=== PATIENT | male | born 1965 | race American Indian/Alaskan Native ===

== ENCOUNTER 2016-10-22 15:28 | Emergency (ER) | payer OTHER ==
--- NOTE | 2016-10-22 17:12 | Ultrasound Report ---
FINAL REPORT PROCEDURE: US TESTICULAR DOPPLER COMP TECHNIQUE: Real-time romano-scale and color flow Doppler sonography in multiple planes of the scrotum, testicles, and epididymes was performed. Velocity spectral waveform analysis Doppler imaging of the arterial inflow and venous outflow of the testicles was performed with image documentation. CPT 42256 and 18497 HISTORY: concern for ingunial hernia COMPARISON: No prior studies are available for comparison. FINDINGS: Right testis measures 5.0 x 2.5 x 3.3 cm. Left testis measures 4.6 x 2.7 x 2.8 cm. No testicular mass is identified. Epididymides are normal in size. Normal Doppler flow is seen in the testicles. There is likely a small right-sided varicocele and small left-sided hydrocele. In the left groin there is suspicion for possible peristalsing bowel which raises concern for left inguinal hernia. Correlation with CT of the pelvis may be useful. IMPRESSION: No evidence of orchitis or torsion is seen. Findings are worrisome for possible left inguinal hernia containing bowel. Correlation with CT of the pelvis may be useful.
--- NOTE | 2016-10-22 17:39 | History and Physical Report ---
Medications and Allergies Allergies Allergy/AdvReac Type Severity Reaction Status Date / Time No Known Allergies Allergy Unverified 10/22/16 15:56 Exam - Constitutional Vitals: Temp Pulse Resp BP Pulse Ox 99 F 91 H 18 148/100 100 10/22/16 15:51 10/22/16 15:51 10/22/16 15:51 10/22/16 15:51 10/22/16 15:51
[2016-10-22 17:44] LABS: Basophils % (Auto) 0.8 % (0.0-1.8); Eosinophils % (Auto) 3.3 % (0.0-4.3); Hematocrit 42.3 % (35.5-45.6); Hemoglobin 13.7 gm/dl (11.8-15.2); Mean Corpuscular HGB Conc 32 % (32-34); Mean Corpuscular Hemoglobin 27 pg (28-32); Mean Corpuscular Volume 82 fl (84-94); Platelet Count 321 K/mm3 (140-440); Red Blood Count 5.13 M/mm3 (3.65-5.03); Red Cell Distribution Width 14.9 % (13.2-15.2)
[2016-10-22 18:02] LABS: Alanine Aminotransferase 16 units/L (7-56); Albumin 4.3 g/dL (3.9-5); Albumin/Globulin Ratio 1.3 %; Alkaline Phosphatase 83 units/L (35-129); Anion Gap 16 mmol/L; Blood Urea Nitrogen 11 mg/dL (9-20); Calcium 9.3 mg/dL (8.4-10.2); Carbon Dioxide 24 mmol/L (22-30); Chloride 100.7 mmol/L (98-107); Glucose 101 mg/dL (75-100); Lipase 56 units/L (13-60); Potassium 3.9 mmol/L (3.6-5.0); Sodium 137 mmol/L (137-145); Total Protein 7.6 g/dL (6.3-8.2)
[2016-10-22 18:27] LABS: Bilirubin,Urine NEG (Negative); Blood,Urine SM (Negative); Ketones,Urine NEG (Negative); Leukocyte Esterase,Urine NEG (Negative); Mucus,Urine FEW /HPF; Nitrite,Urine NEG (Negative); Protein,Urine <15 mg/dL mg/dL (Negative); Urobilinogen,Urine < 2.0 mg/dL (<2.0)
[2016-10-22] MEDS ORDERED: TYLENOL ONE (19:50)
[2016-10-22] MEDS ORDERED: TYLENOL PO ONE (19:56)
[2016-10-22] MEDS ORDERED: MORPHINE IV ONE (20:28)
[2016-10-22] MEDS ORDERED: ZOFRAN IV ONE (20:28)
[2016-10-22] MEDS ORDERED: NACL ONE (20:31)
--- NOTE | 2016-10-22 20:39 | Emergency Department Report ---
ED Male HPI - General Chief complaint: Abdominal Pain Stated complaint: ABD PAIN Time Seen by Provider: 10/22/16 20:15 Source: patient, RN notes reviewed Mode of arrival: Ambulatory Limitations: No Limitations - History of Present Illness Initial comments: 51-year-old male presents to the emergency department complaining of left inguinal hernia pain. Patient states he has had a hernia for several years but over the past 4 days has become larger and painful. Patient describes sharp pain that does not radiate. He denies difficulty urinating, constipation, or diarrhea. There are no other complaints. MD Complaint: hernia -: Gradual, days(s) (4) Location: left inguinal region Radiation: none Severity: moderate Severity scale (0 -10): 5 Quality: sharp Consistency: intermittent Improves with: none Worsens with: none denies other symptoms - Related Data Previous Rx's Medication Instructions Recorded Last Taken Type HYDROcodone/APAP 5-325 [[place] 1 each PO Q6HR PRN #30 tablet 10/22/16 Unknown Rx 5/325] Allergies Allergy/AdvReac Type Severity Reaction Status Date / Time No Known Allergies Allergy Unverified 10/22/16 15:56 ED Review of Systems ROS: Stated complaint: ABD PAIN Other details as noted in HPI Comment: All other systems reviewed and negative Genitourinary: as per HPI. denies: dysuria, discharge, testicular pain ED Past Medical Hx - Past Medical History Previous Medical History?: Yes Additional medical history: left inguinal hernia - Surgical History Past Surgical History?: Yes Additional Surgical History: right knee - Family History Family history: no significant - Social History Smoking Status: Never Smoker Substance Use Type: Alcohol - Medications Home Medications: Home Medications Medication Instructions Recorded Confirmed Last Taken Type HYDROcodone/APAP 5-325 [[place] 1 each PO Q6HR PRN #30 tablet 10/22/16 Unknown Rx 5/325] ED Physical Exam - General Limitations: No Limitations General appearance: alert, in no apparent distress - Head Head exam: Present: atraumatic, normocephalic - Eye Eye exam: Present: normal appearance, PERRL, EOMI - ENT ENT exam: Present: normal exam, normal orophraynx, mucous membranes moist - Neck Neck exam: Present: normal inspection, full ROM. Absent: tenderness - Respiratory Respiratory exam: Present: normal lung sounds bilaterally. Absent: respiratory distress - Cardiovascular Cardiovascular Exam: Present: regular rate, normal rhythm, normal heart sounds - GI/Abdominal GI/Abdominal exam: Present: soft, normal bowel sounds. Absent: distended, tenderness - exam: Present: other (large left inguinal hernia that is mildly tender to palpation. No overlying erythema.). Absent: testicular tenderness, scrotal swelling - Extremities Exam Extremities exam: Present: normal inspection, full ROM. Absent: tenderness - Back Exam Back exam: Present: normal inspection, full ROM. Absent: tenderness - Neurological Exam Neurological exam: Present: alert, oriented X3. Absent: motor sensory deficit - Skin Skin exam: Present: warm, dry, intact ED Course Vital Signs 10/22/16 10/22/16 10/22/16 15:51 19:57 20:41 Temperature 99 F 99.0 F Pulse Rate 91 H 79 Respiratory 18 18 18 Rate Blood Pressure 148/100 Blood Pressure 141/98 [Left] O2 Sat by Pulse 100 99 Oximetry ED Medical Decision Making - Lab Data Result diagrams: 10/22/16 17:08 10/22/16 17:08 - Radiology Data Radiology results: report reviewed, image reviewed CT of abdomen and pelvis reveal a left inguinal hernia containing a nondistended colon. There are no other abnormalities noted. - Medical Decision Making Lab and imaging results reviewed and discussed with the patient. Patient reports pain medicine has improved his symptoms. Additional medication and attempts at reduction of the hernia were offered to the patient. Patient is declining this and just wants to go home. There is no evidence of incarceration or strangulation of the hernia. Patient will be discharged home on oral pain medication to follow up with surgery. - Differential Diagnosis inguinal hernia, incarcerated hernia, strangulated hernia Critical care attestation.: If time is entered above; I have spent that time in minutes in the direct care of this critically ill patient, excluding procedure time. ED Disposition Clinical Impression: Left inguinal hernia Disposition: DISCHARGED TO HOME OR SELFCARE Is pt being admited?: No Condition: Stable Instructions: Inguinal Hernia (ED) Prescriptions: HYDROcodone/APAP 5-325 [[place] 5/325] 1 each PO Q6HR PRN #30 tablet PRN Reason: Pain Referrals: EBEN ROSARIO [Other] - 3-5 Days TASIA MADDEN MD [Staff Physician] - 3-5 Days Time of Disposition: 22:47
[2016-10-22 21:05] VITALS: BP 141/98
--- NOTE | 2016-10-22 21:17 | Cat Scan Report ---
FINAL REPORT PROCEDURE: CT ABDOMEN PELVIS W CON TECHNIQUE: Computerized axial tomography of the abdomen and pelvis was performed after the IV injection of iodinated nonionic contrast. HISTORY: L inguinal hernia with pain COMPARISON: Ultrasound from the same day FINDINGS: Heart is top normal limits in size. Spleen and liver appear normal. The gallbladder and pancreas appear normal. The adrenal glands and abdominal aorta are normal in size. No renal abnormalities are seen. Normal appendix is seen. Bladder appears normal. There is a left inguinal hernia that contains a portion of the descending colon without evidence of colon obstruction. No small bowel obstruction is seen. There is a probable lipoma in the right gluteus kirstin musculature, measuring 6.3 x 3.1 cm in greatest axial dimensions. It requires no further workup unless it is painful or enlarges. IMPRESSION: Left inguinal hernia is seen containing a nondilated portion of the descending colon. Probable lipoma is seen in the right gluteus kirstin musculature.
== END 2016-10-22 23:01 | disposition home or self-care (01) ==
LOC: ED 15:28
DX: K40.90 Unilateral inguinal hernia, without obstruction or gangrene, not specified as recurrent (principal)
CPT/HCPCS: 36415; 74177; 80053; 81001; 83690; 85025; 86850; 86900; 86901; 93975; 96374; 96375; 99284; J2270; J2405; Q9967

== ENCOUNTER 2017-06-06 09:10 | Emergency (ER) | payer SELFPAY ==
[2017-06-06 09:59] LABS: Basophils % (Auto) 0.9 % (0.0-1.8); Eosinophils % (Auto) 6.7 % (0.0-4.3); Hematocrit 42.4 % (35.5-45.6); Hemoglobin 14.1 gm/dl (11.8-15.2); Mean Corpuscular HGB Conc 33 % (32-34); Mean Corpuscular Hemoglobin 27 pg (28-32); Mean Corpuscular Volume 81 fl (84-94); Platelet Count 310 K/mm3 (140-440); Red Blood Count 5.22 M/mm3 (3.65-5.03); Red Cell Distribution Width 15.2 % (13.2-15.2); White Blood Count 6.1 K/mm3 (4.5-11.0)
[2017-06-06 10:12] LABS: INR 1.12 (0.87-1.13)
[2017-06-06 10:13] LABS: Partial Thromboplastin Time 30.5 Sec. (24.2-36.6)
[2017-06-06 10:17] LABS: Anion Gap 18 mmol/L; BUN/Creatinine Ratio 14; Blood Urea Nitrogen 15 mg/dL (9-20); Calcium 8.8 mg/dL (8.4-10.2); Carbon Dioxide 23 mmol/L (22-30); Chloride 102.7 mmol/L (98-107); Glucose 98 mg/dL (75-100); Potassium 3.6 mmol/L (3.6-5.0); Sodium 140 mmol/L (137-145)
--- NOTE | 2017-06-06 10:17 | Cat Scan Report ---
CT scan of head without IV contrast: History: Neural deficits. Findings: Ventricles are normal in size and midline in location. No evidence of acute Hg medial, hemorrhage or mass. No extra axial fluid collection. Normal brainstem and cerebellum. Normal sinuses and mastoid air cells. Impression: No acute intracranial abnormality.
--- NOTE | 2017-06-06 12:44 | Emergency Department Report ---
ED Headache HPI - General Chief Complaint: Headache Stated Complaint: HTN, HEADACHES Time Seen by Provider: 06/06/17 12:36 Source: patient - History of Present Illness Initial Comments: Patient is 51 years old male history of hypertension and diabetes Today with chief complaint of headache, global, throbbing. Patient stated that he wanted out of his blood pressure medication which include lisinopril 20 mg and Norvasc 10 mg and his metformin 500 mg. Patient denied any fever or neck stiffness. Patient denied any weakness, numbness or tingling sensation, no bowel or bladder incontinence. Timing/Duration: 1 week Quality: moderate Head Injury Location: global Recent Head Trauma: no recent headache/trauma, frequent headaches Associated Symptoms: denies symptoms. denies: confusion, fatigue, facial pain, fever/chills, flushing, loss of consciousness, nausea/vomiting, nasal congestion , nasal drainage, numbness in legs/feet, rash, seizures, sinus infection, stiff neck, vision changes, weakness, other Allergies/Adverse Reactions: Allergies No Known Allergies Allergy (Unverified 10/22/16 15:56) Home Medications: Ambulatory Orders HYDROcodone/APAP 5-325 [[place] 5/325] 1 each PO Q6HR PRN #30 tablet 10/22/16 ED Review of Systems ROS: Stated complaint: HTN, HEADACHES Other details as noted in HPI Comment: All other systems reviewed and negative Constitutional: denies: chills, fever Respiratory: denies: cough, orthopnea, shortness of breath, SOB with exertion, SOB at rest Cardiovascular: denies: chest pain, palpitations, dyspnea on exertion, edema, syncope Gastrointestinal: denies: abdominal pain, nausea, vomiting, diarrhea, constipation, hematemesis Musculoskeletal: denies: back pain, joint swelling Neurological: denies: headache, weakness, numbness, paresthesias ED Past Medical Hx - Past Medical History Hx Hypertension: Yes Additional medical history: left inguinal hernia - Surgical History Past Surgical History?: Yes Additional Surgical History: right knee - Social History Smoking Status: Never Smoker Substance Use Type: Alcohol - Medications Home Medications: Home Medications Medication Instructions Recorded Confirmed Last Taken Type HYDROcodone/APAP 5-325 [[place] 1 each PO Q6HR PRN #30 tablet 10/22/16 Unknown Rx 5/325] ED Physical Exam - General Limitations: No Limitations General appearance: alert, in no apparent distress - Head Head exam: Present: atraumatic, normocephalic, normal inspection - Eye Eye exam: Present: normal appearance, PERRL - ENT ENT exam: Present: normal exam, normal orophraynx, mucous membranes moist - Neck Neck exam: Present: normal inspection, full ROM. Absent: tenderness, meningismus, lymphadenopathy, thyromegaly - Respiratory Respiratory exam: Present: normal lung sounds bilaterally. Absent: respiratory distress, wheezes, rales, rhonchi, stridor, chest wall tenderness, accessory muscle use, decreased breath sounds, prolonged expiratory - Cardiovascular Cardiovascular Exam: Present: regular rate, normal rhythm, normal heart sounds. Absent: bradycardia, tachycardia, irregular rhythm, systolic murmur, diastolic murmur, gallop - GI/Abdominal GI/Abdominal exam: Present: soft, normal bowel sounds. Absent: distended, tenderness, guarding, rebound, rigid, organomegaly, mass, bruit, pulsatile mass , hernia - Extremities Exam Extremities exam: Present: normal inspection, full ROM, normal capillary refill. Absent: tenderness, pedal edema, joint swelling, calf tenderness - Back Exam Back exam: Present: normal inspection. Absent: CVA tenderness (R), CVA tenderness (L) - Neurological Exam Neurological exam: Present: alert, oriented X3, CN II-XII intact, normal gait, reflexes normal. Absent: abnormal gait, motor sensory deficit - Psychiatric Psychiatric exam: Present: normal mood - Skin Skin exam: Present: warm, intact, normal color ED Course Vital Signs 06/06/17 09:15 Temperature 98 F Pulse Rate 88 Respiratory 16 Rate Blood Pressure 169/102 O2 Sat by Pulse 98 Oximetry ED Medical Decision Making - Lab Data Result diagrams: 06/06/17 09:25 06/06/17 09:25 - EKG Data -: EKG Interpreted by Wy EKG shows normal: sinus rhythm - EKG Data Interpretation: no acute changes - Radiology Data Radiology results: report reviewed Referring Physician: ED DOC Patient Name: MADHU CASTRO Date of : 1965 Sex: Male Report Date: 2017-06-06 Report Status: Finalized Findings [facility] [address] [place] [address] Cat Scan Report Signed Patient: MADHU CASTRO MR#: [id number] : 1965 Acct:[id number] Age/Sex: 51 / M ADM Date: 06/06/17 Loc: ED Attending Dr: Ordering Physician: JAMAL ENCARNACION MD Date of Service: 06/06/17 Procedure(s): CT head/brain wo con Accession Number(s): [id number] cc: JAMAL ENCARNACION MD CT scan of head without IV contrast: History: Neural deficits. Findings: Ventricles are normal in size and midline in location. No evidence of acute Hg medial, hemorrhage or mass. No extra axial fluid collection. Normal brainstem and cerebellum. Normal sinuses and mastoid air cells. Impression: No acute intracranial abnormality. Transcribed By: PTP Dictated By: RIKI ALCAZAR MD Electronically Authenticated By: RIKI ALCAZAR MD Signed Date/Time: 06/06/17999 DD/ 8 TD/TT: 06/06/17999 Critical care attestation.: If time is entered above; I have spent that time in minutes in the direct care of this critically ill patient, excluding procedure time. ED Disposition Clinical Impression: Headache, Malignant hypertension Disposition: DC-01 TO HOME OR SELFCARE Is pt being admited?: No Condition: Stable Instructions: Hypertension (ED), Acute Headache (ED) Referrals: PRIMARY CARE, [Primary Care Provider] - 3-5 Days
[2017-06-06] MEDS ORDERED: CATAPRES PO ONE (12:46)
[2017-06-06] MEDS ORDERED: TYLENOL PO ONE (12:46)
[2017-06-06 13:18] VITALS: BP 178/117
== END 2017-06-06 13:50 | disposition home or self-care (01) ==
LOC: ED 09:10
DX: I10 Essential (primary) hypertension (principal)
CPT/HCPCS: 36415; 70450; 80048; 84484; 85025; 85610; 85670; 85730; 93005; 93010; 99285

== ENCOUNTER 2018-08-18 18:09 | Emergency (ER) | payer OTHER ==
--- NOTE | 2018-08-18 18:14 | Emergency Department Report ---
Blank Doc - Documentation Documentation: This is a 52-year-old male that presents with chronic lower back pain. 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 Denies any injuries. This initial assessment diagnostic orders/clinical plan/treatment(s) is/are subject to change based on patient's health status, clinical progression and re- assessment by fellow clinical providers in the ED. Further treatment and workup at subsequent clinical providers discretion. Patient/guardians urged not to elope from ED s their condition may be serious if not clinically assessed and managed. Initial orders include: 1-Patient sent to [facility] for further evaluation and treatment
--- NOTE | 2018-08-18 20:09 | Emergency Department Report ---
ED Back Pain/Injury HPI - General Chief Complaint: Back Pain/Injury Stated Complaint: LOWER BACK PAIN Time Seen by Provider: 08/18/18 18:13 Source: patient Limitations: No Limitations - History of Present Illness Initial Comments: 52-year-old -[place] male comes to the emergency room reporting he is having ongoing back pain since 2017. Patient reports he has an appointment on with his orthopedic provider but is out of pain medication. Patient reports that he has been taking ibuprofen 800 mg she reports is not helping much with the pain. Patient is requesting a refill on his tramadol. She has a past medical history diabetes hypertension and prostate cancer. Patient reports that he was doing physical training test when he reaggravated his back. Patient also requesting work excuse until as he does not feel he is able to lift heavy objects which is what his job requires. MD Complaint: back pain Similar Symptoms Previously: Yes Place: work Radiation: right leg Severity scale (0 -10): 7 Quality: burning, sharp, aching Consistency: constant Improves With: medication Worsens With: movement, other (lifting) Context: while lifting Associated Symptoms: denies: chest pain, incontinence - Related Data Previous Rx's Medication Instructions Recorded Last Taken Type HYDROcodone/APAP 5-325 [[place] 1 each PO Q6HR PRN #30 tablet 10/22/16 Unknown Rx 5/325] Lisinopril [Zestril TAB] 20 mg PO QDAY #30 tab 06/06/17 Unknown Rx Ondansetron [Zofran Odt] 4 mg PO Q8HR PRN #7 tab.rapdis 06/06/17 Unknown Rx amLODIPine [Norvasc] 10 mg PO DAILY #30 tab 06/06/17 Unknown Rx metFORMIN [Glucophage] 500 mg PO BID 60 Days tablet 06/06/17 Unknown Rx traMADol [Ultram 50 MG tab] 50 mg PO Q6HR PRN #12 tablet 08/18/18 Unknown Rx Allergies Allergy/AdvReac Type Severity Reaction Status Date / Time No Known Allergies Allergy Unverified 10/22/16 15:56 ED Review of Systems ROS: Stated complaint: LOWER BACK PAIN Other details as noted in HPI Comment: All other systems reviewed and negative Musculoskeletal: back pain ED Past Medical Hx - Past Medical History Previous Medical History?: Yes Hx Hypertension: Yes Additional medical history: left inguinal hernia. enlarged prostate - Surgical History Past Surgical History?: Yes Additional Surgical History: right knee - Social History Smoking Status: Never Smoker Substance Use Type: None - Medications Home Medications: Home Medications Medication Instructions Recorded Confirmed Last Taken Type HYDROcodone/APAP 5-325 [[place] 1 each PO Q6HR PRN #30 tablet 10/22/16 Unknown Rx 5/325] Lisinopril [Zestril TAB] 20 mg PO QDAY #30 tab 06/06/17 Unknown Rx Ondansetron [Zofran Odt] 4 mg PO Q8HR PRN #7 tab.rapdis 06/06/17 Unknown Rx amLODIPine [Norvasc] 10 mg PO DAILY #30 tab 06/06/17 Unknown Rx metFORMIN [Glucophage] 500 mg PO BID 60 Days tablet 06/06/17 Unknown Rx traMADol [Ultram 50 MG tab] 50 mg PO Q6HR PRN #12 tablet 08/18/18 Unknown Rx ED Physical Exam - General Limitations: No Limitations General appearance: alert, in no apparent distress - Head Head exam: Present: atraumatic, normocephalic - Eye Eye exam: Present: EOMI - ENT ENT exam: Present: mucous membranes moist - Neck Neck exam: Present: normal inspection - Respiratory Respiratory exam: Present: normal lung sounds bilaterally. Absent: respiratory distress - Cardiovascular Cardiovascular Exam: Present: regular rate, normal rhythm. Absent: systolic murmur, diastolic murmur, rubs, gallop - Back Exam Back exam: Present: tenderness, muscle spasm - Neurological Exam Neurological exam: Present: alert, oriented X3 - Psychiatric Psychiatric exam: Present: normal affect, normal mood - Skin Skin exam: Present: warm, dry, intact, normal color. Absent: rash ED Course Vital Signs 08/18/18 18:13 Temperature 97.8 F Pulse Rate 109 H Respiratory 18 Rate Blood Pressure 143/92 O2 Sat by Pulse 97 Oximetry ED Medical Decision Making - Medical Decision Making Patient has been evaluated by this provider in fast track. I discussed with patient that were only able to give 3 days worth of pain medication. I did review Torri aware of this patient last had a prescription for tramadol on 08/02/2018. I discussed the patient will clara his work excuse until Sunday and at that time patient will need to be reevaluated by his orthopedic provider. Patient verbalized understanding. Critical care attestation.: If time is entered above; I have spent that time in minutes in the direct care of this critically ill patient, excluding procedure time. ED Disposition Clinical Impression: Chronic back pain greater than 3 months duration Disposition: TO HOME OR SELFCARE Is pt being admited?: No Does the pt Need Aspirin: No Condition: Stable Instructions: Chronic Back Pain (ED) Additional Instructions: Please take pain medication as prescribed. Do not operate heavy machinery while taking pain medication. It is important for you to follow up with your back specialist for ongoing pain medication and treatment. The emergency room would not be able to give another prescription for narcotics. Please do not operate heavy machinery while taking tramadol. Prescriptions: traMADol [Ultram 50 MG tab] 50 mg PO Q6HR PRN #12 tablet PRN Reason: Pain Referrals: [facility] [Provider Group] - 3-5 Days
== END 2018-08-18 20:20 | disposition home or self-care (01) ==
LOC: ED 18:09
CPT/HCPCS: 99282

== ENCOUNTER 2018-08-31 07:15 | Emergency (ER) | payer OTHER ==
[2018-08-31 07:31] VITALS: BP 152/97
[2018-08-31] MEDS ORDERED: TYLENOL PO ONE (07:31)
[2018-08-31] MEDS ORDERED: TYLENOL ONE (07:32)
[2018-08-31] MEDS ORDERED: TORADOL IM ONE (09:28)
--- NOTE | 2018-08-31 09:32 | Emergency Department Report ---
ED Back Pain/Injury HPI - General Chief Complaint: Back Pain/Injury Stated Complaint: LOWER BACK PAIN Time Seen by Provider: 08/31/18 09:19 Source: patient, old records reviewed (here for back pain several weeks ago) Limitations: No Limitations - History of Present Illness Initial Comments: 52-year-old male with a history of chronic back pain complains of exacerbation while at work yesterday. He is currently under the care of orthopedic surgeon and had an MRI within the last year. He was recently granted 5% disability. He is taking [id number] medication without relief. He will saw his orthopedic doctor August 22 and received a steroid shot. He has a follow-up appointment on September 06. Denies any new neurologic deficits MD Complaint: back pain -: month(s) (5) Similar Symptoms Previously: Yes Place: work Radiation: left leg, right leg Severity: moderate, severe Quality: burning, aching Consistency: intermittent Worsens With: movement Context: other Associated Symptoms: difficulty walking (due to pain). denies: weakness, numbness, incontinence, fever/chills Treatments Prior to Arrival: other (tylenol) - Related Data Previous Rx's Medication Instructions Recorded Last Taken Type HYDROcodone/APAP 5-325 [[place] 1 each PO Q6HR PRN #30 tablet 10/22/16 Unknown Rx 5/325] Lisinopril [Zestril TAB] 20 mg PO QDAY #30 tab 06/06/17 Unknown Rx Ondansetron [Zofran Odt] 4 mg PO Q8HR PRN #7 tab.rapdis 06/06/17 Unknown Rx amLODIPine [Norvasc] 10 mg PO DAILY #30 tab 06/06/17 Unknown Rx metFORMIN [Glucophage] 500 mg PO BID 60 Days tablet 06/06/17 Unknown Rx Ibuprofen [Motrin] 800 mg PO Q8HR PRN #30 tablet 08/31/18 Unknown Rx traMADol [Ultram 50 MG tab] 50 mg PO Q6HR PRN #20 tablet 08/31/18 Unknown Rx Allergies Allergy/AdvReac Type Severity Reaction Status Date / Time No Known Allergies Allergy Unverified 10/22/16 15:56 ED Review of Systems ROS: Stated complaint: LOWER BACK PAIN Other details as noted in HPI Comment: All other systems reviewed and negative ED Past Medical Hx - Past Medical History Previous Medical History?: Yes Hx Hypertension: Yes Hx of Cancer: Yes (prostate cancer treated surgically) Additional medical history: left inguinal hernia. enlarged prostate - Surgical History Past Surgical History?: Yes Additional Surgical History: right knee - Social History Smoking Status: Never Smoker Substance Use Type: Alcohol - Medications Home Medications: Home Medications Medication Instructions Recorded Confirmed Last Taken Type HYDROcodone/APAP 5-325 [[place] 1 each PO Q6HR PRN #30 tablet 10/22/16 Unknown Rx 5/325] Lisinopril [Zestril TAB] 20 mg PO QDAY #30 tab 06/06/17 Unknown Rx Ondansetron [Zofran Odt] 4 mg PO Q8HR PRN #7 tab.rapdis 06/06/17 Unknown Rx amLODIPine [Norvasc] 10 mg PO DAILY #30 tab 06/06/17 Unknown Rx metFORMIN [Glucophage] 500 mg PO BID 60 Days tablet 06/06/17 Unknown Rx Ibuprofen [Motrin] 800 mg PO Q8HR PRN #30 tablet 08/31/18 Unknown Rx traMADol [Ultram 50 MG tab] 50 mg PO Q6HR PRN #20 tablet 08/31/18 Unknown Rx ED Physical Exam - General Limitations: No Limitations - Other Other exam information: General: No limitations, patient is alert in no acute distress Head exam: Atraumatic, normocephalic Eyes exam: Normal appearance ENT: Moist mucous membrane Neck exam: Normal inspection, full range of motion, no meningismus nontender Respiratory exam: Clear to auscultation bilateral, no wheezes, rales, crackles Cardiovascular: Normal rate and rhythm, normal heart sounds Abdomen: Soft, nondistended, and nontender, with normal bowel sounds, no rebound, or guarding Extremity: Full range of motion normal inspection no deformity Back: Normal Inspection, full range of motion, midline lumbar tenderness and bilateral lumbar paraspinal muscle tenderness Neurologic: Alert, oriented x3, cranial nerves intact, no motor or sensory deficit Psychiatric: normal affect, normal mood Skin: Warm, dry, intact ED Course Vital Signs 08/31/18 07:28 Temperature 97.9 F Pulse Rate 94 H Respiratory 20 Rate Blood Pressure 152/97 O2 Sat by Pulse 98 Oximetry ED Medical Decision Making - Medical Decision Making Patient treated symptomatically for chronic back pain without acute neurologic deficit. Medications will be prescribed. Toradol provided in ED. Follow-up encouraged - Differential Diagnosis chronic back pain, muscle strain, herniated disc, radiculopathy Critical Care Time: No Critical care attestation.: If time is entered above; I have spent that time in minutes in the direct care of this critically ill patient, excluding procedure time. ED Disposition Clinical Impression: Acute exacerbation of chronic low back pain, Lumbar radiculopathy Disposition: TO HOME OR SELFCARE Is pt being admited?: No Does the pt Need Aspirin: No Condition: Stable Instructions: Chronic Back Pain (ED), Lumbar Radiculopathy (ED) Additional Instructions: Take the medication as prescribed. Follow up with your doctor or the clinic/doctor provided. Return if symptoms worsen as indicated by your discharge instructions Prescriptions: Ibuprofen [Motrin] 800 mg PO Q8HR PRN #30 tablet PRN Reason: Pain, Moderate (4-6) traMADol [Ultram 50 MG tab] 50 mg PO Q6HR PRN #20 tablet PRN Reason: Pain Referrals: CHAO KEARNS MD [Primary Care Provider] - 3-5 Days your, orthopedic doctor [Other] - 3-5 Days Forms: Work/School Release Form(ED) Time of Disposition: 09:33
== END 2018-08-31 09:46 | disposition home or self-care (01) ==
LOC: ED 07:15
DX: G89.29 Other chronic pain (principal); M54.16 Radiculopathy, lumbar region; I10 Essential (primary) hypertension; Z85.46 Personal history of malignant neoplasm of prostate
CPT/HCPCS: 96372; 99282; J1885